=== PATIENT | male | born 1965 | race Caucasian/White ===

== ENCOUNTER 2023-07-05 17:05 | Emergency (ER) | payer MEDICAID, SELFPAY ==
[2023-07-05 17:08] VITALS: BP 149/78; PULSE 82; RESP 16; TEMP 36.5; O2SAT 93; BMI 34.7
--- NOTE | 2023-07-05 17:58 | CTR_ITS ---
PROCEDURE INFORMATION: Exam: CT Abdomen And Pelvis With Contrast Exam date and time: 07/05/2023 6:27 PM Age: 58 years old Clinical indication: Abdominal pain; Localized; Right lower quadrant (rlq); Additional info: Abd pain TECHNIQUE: Imaging protocol: Computed tomography of the abdomen and pelvis with contrast. Radiation optimization: All CT scans at this facility use at least one of these dose optimization techniques: automated exposure control; mA and/or kV adjustment per patient size (includes targeted exams where dose is matched to clinical indication); or iterative reconstruction. Contrast material: [id number]; Contrast volume: 100 ml; Contrast route: INTRAVENOUS (IV); COMPARISON: No relevant prior studies available. RADIATION DOSE METRICS: Total DLP (mGy-cm): 1120 FINDINGS: Lungs: There are atelectatic changes in both lung bases, more in the left lower lobe. Mediastinal space: There is mediastinal lipomatosis. Liver: Normal. No mass. Gallbladder and bile ducts: Normal. No calcified stones. No ductal dilation. Pancreas: Normal. No ductal dilation. Spleen: Normal. No splenomegaly. Adrenal glands: Normal. No mass. Kidneys and ureters: Normal. No hydronephrosis. Stomach and bowel: There is mild fat stranding surrounding the 2nd and 3rd segments of the duodenal with mild duodenal wall thickening. There is wall thickening of the ascending colon with surrounding fat stranding. There are scattered diverticuli in the colon. There fatty infiltration of the wall of the ascending and transverse colon. Appendix: No evidence of appendicitis. Intraperitoneal space: There is mild amount of free fluid tracking along the right paracolic gutter. Vasculature: There are vascular calcifications. Lymph nodes: Unremarkable. No enlarged lymph nodes. Urinary bladder: Unremarkable as visualized. Reproductive: There are prostate calcifications. Bones/joints: There is mild degenerative of bilateral hip joints. Soft tissues: Unremarkable. CT/CT abdomen pelvis w con* [id number] IMPRESSION: 1. Findings consistent with duodenitis of the 2nd and 3rd segments of the duodenal. 2. Findings consistent with ascending colitis/diverticulitis. 3. No perforation. No abscess formation.
[2023-07-05] MEDS: ondansetron 2 mg/ML SDV 2 mL 4 MG IVP (18:02)
[2023-07-05] MEDS: HYDROmorphone 1 mg/mL INJ 1 mL IVP (18:03)
[2023-07-05 18:05] VITALS: BP 117/72; PULSE 75; RESP 16; O2SAT 95
[2023-07-05 18:08] LABS: Basophils # 0.1 10^3/uL (0.0-0.1); Basophils % 0.7 %; Eosinophils # 0.2 10^3/uL (0.0-0.8); Eosinophils % 1.9 %; Hematocrit 48.6 % (37-53); Lymphocytes # 1.5 10^3/uL (0.8-4.8); Lymphocytes % 14.9 %; Mean Corpuscular HGB Conc 32.7 g/dL (30-55); Mean Corpuscular Hemoglobin 29.8 pg (27-33); Mean Platelet Volume 9.7 fL (7.4-10.4); Monocytes # 0.7 10^3/uL (0.2-0.9); Monocytes % 7.3 %; Neutrophils # 7.55 10^3/uL (1.8-7.7); Neutrophils % 74.7 %; Nucleated Red Blood Cells % 0 %; Platelet Count 263 10^3/cmm (157-399); Red Blood Count 5.34 10^6/uL (3.85-5.65); Red Cell Distribution Width 13.2 % (12.1-15.1); White Blood Count 10.11 10^3/uL (3.29-11.43)
--- NOTE | 2023-07-05 18:08 | ED_ITS ---
HPI - Abdominal Pain 2 General: Chief Complaint: Abdominal Pain Stated Complaint: abd pain Time Seen by Provider: 07/05/23 17:57 Source: patient Mode of arrival: ambulatory Limitations: no limitations History of Present Illness: 58-year-old male states that over the la st 6 days been having abdominal pain has gotten much worse over the last 2 days states pain is very sharp in nature rates an 8 out of 10 it has been in his right lower quadrant states has had some diarrhea he denies any vomiting denies any fever denies any worsening improving factors. Denies any radiation of his pain Associated Symptoms: Denies chills, diarrhea, dysuria, fever(s), nausea and vomiting Review of Systems 2 Const: Denies: fever(s), chills, body aches or change in appetite ENMT: Denies: throat pain or dental pain Card: Denies: chest pain Resp: Denies: dyspnea GI: Reports: abdominal pain; Denies: nausea, vomiting or diarrhea : Denies: dysuria Musc: Denies: neck pain or back pain Skin/Breast: Denies: rash Neuro: Denies: headache(s) Physical Exam 2 Const: COMMON NORMALS: no acute distress, patient oriented x3 and healthy appearing HENMT: COMMON NORMALS: normocephalic and atraumatic HEAD & SCALP: n ormocephalic and atraumatic Neck/C-Spine: COMMON NORMALS: full ROM and supple Chest: COMMONS NORMALS: normal inspection of the chest and normal palpation of entire chest wall Resp: COMMON NORMALS: normal respiratory effort Cardio: COMMON NORMALS: regular rate, regular rhythm and No murmurs present (Cardio) RATE: regular rate RHYTHM: regular rhythm GI: COMMON NORMALS: Normal to inspection, nondistended, normoactive bowel sounds present, Soft to palpation and no masses PALPATION: Yes Soft to palpation and Yes Tenderness to palpation present (GI) Details: RLQ Extremity: COMMON NORMALS: normal to inspection and full ROM Neuro: COMMON NORMALS: patient oriented x3, moves all extremities and no focal motor deficits Psych: COMMON NORMALS: mental status grossly normal, Normal thought process present and cooperative THOUGHT PROCESS: Normal thought process present Skin: COMMON NORMALS: no rashes or lesions noted and no wounds GENERAL SKIN EXAM: no rashes or lesions noted Course 2 Vital Signs: Vital signs: Vital Signs Temperature 97.7 F 07/05/23 17:08 Pulse Rate 75 07/05/23 18:05 Respiratory Rate 16 07/05/23 18:05 Blood Pressure 117/72 07/05/23 18:05 Pulse Oximetry 95 07/05/23 18:05 Oxygen Delivery Me thod Room Air 07/05/23 17:08 MDM - Abdominal Pain Medical Decision Making Patient presents here with colitis along with gastritis likely causing pain no signs appendicitis we will start him on Flagyl Cipro along with Protonix he is to follow-up with surgery return if worsening. Medical Records I reviewed the patient's medical records. Lab Data I reviewed the patient's lab results. 07/05/23 17:58 07/05/23 17:58 Labs/Radiology: Radiology Impressions Abdomen/Pelvis CT 07/05/23 17:58 IMPRESSION: 1. Findings consistent with duodenitis of the 2nd and 3rd segments of the duodenal. 2. Findings consistent with ascending colitis/diverticulitis. 3. No perforation. No abscess formation. Laboratory Results WBC 10.11 10^3/uL (3.29-11.43) 07/05/23 17:58 RBC 5.34 10^6/uL (3.85-5.65) 07/05/23 17:58 Hgb 15.90 g/dL (11.27-16.99) 07/05/23 17:58 Hct 48.6 % (37-53) 07/05/23 17:58 MCV 91.0 fl (82-101) 07/05/23 17:58 MCH 29.8 pg (27-33) 07/05/23 17:58 MCHC 32.7 g/dL (30-55) 07/05/23 17:58 RDW 13.2 % (12.1-15.1) 07/05/23 17:58 Plt Count 263 10^3/cmm (157-399) 07/05/23 17:58 MPV 9.7 fL (7.4-10.4) 07/05/23 17:58 Neut % (Auto) 74.7 % 07/05/23 17:58 Lymph % (Auto) 14.9 % 07/05/23 17:58 [place] % (Auto) 7.3 % 07/05/23 17:58 Eos % (Auto) 1.9 % 07/05/23 17:58 Baso % (Auto) 0.7 % 07/05/23 17:58 Neut # (Auto) 7.55 10^3/uL (1.8-7.7) 07/05/23 17:58 Lymph # (Auto) 1.5 10^3/uL (0.8-4.8) 07/05/23 17:58 [place] # (Auto) 0.7 10^3/uL (0.2-0.9) 07/05/23 17:58 Eos # (Auto) 0.2 10^3/uL (0.0-0.8) 07/05/23 17:58 Baso # (Auto) 0.1 10^3/uL (0.0-0.1) 07/05/23 17:58 Nucleated RBC % (auto) 0 % 07/05/23 17:58 Nucleated RBCs # 0.0 /100WBC 07/05/23 17:58 Sodium 133 mmol/L (136-145) L 07/05/23 17:58 Potassium 4.4 mmol/L (3.5-5.1) 07/05/23 17:58 Chloride 96 mmol/L (98-107) L 07/05/23 17:58 Carbon Dioxide 28 mmol/L (22-29) 07/05/23 17:58 Anion Gap 13.4 (5-19) 07/05/23 17:58 BUN 12 mg/dL (6-20) 07/05/23 17:58 Creatinine 1.3 mg/dL (0.7-1.2) H 07/05/23 17:58 GFR Calculation 57.1 mL/min (90-130) L 07/05/23 17:58 Glucose 106 mg/dL (65-115) 07/05/23 17:58 Calculated Osmolality 276 mOsm/kg (285-295) L 07/05/23 17:58 Calcium 8.6 mg/dL (8.5-10.5) 07/05/23 17:58 Total Bilirubin 0.5 mg/dL (0.15-1.2) 07/05/23 17:58 AST 12 U/L (0-40) 07/05/23 17:58 ALT 17 U/L (0-41) 07/05/23 17:58 Alkaline Phosphatase 121 U/L (40-130) 07/05/23 17:58 Total Protein 6.8 g/dL (6.6-8.7) 07/05/23 17:58 Albumin 3.6 g/dL (3.5-5.2) 07/05/23 17:58 Globulin 3.2 g/dL (1.3-4.6) 07/05/23 17:58 Lipase 22 U/L (13-60) 07/05/23 17:58 All radiology interpretation(s) finalized by discharge Discharge Plan Discharge Patient Disposition: Home Clinical Impression: Colitis, Duodenitis Condition: Stable Prescriptions: New hydrocodone-acetaminophen 5-325 mg tablet 1 tab PO Q6H PRN (Reason: pain) Qty: 14 0RF metronidazole 500 mg tablet 500 mg PO Q8H 7 Days Qty: 21 0RF Cipro 500 mg tablet 500 mg PO BID Qty: 14 0RF Protonix 40 mg tablet,delayed release (DR/EC) 40 mg PO BID Qty: 90 0RF ondansetron 4 mg tablet,disintegrating 4 mg PO Q6H PRN (Reason: nausea and vomiting) Qty: 14 0RF Discharge Orders: Discharge ED (Routine); Ordered 07/05/23 Ordered By: Hector Campa Referrals: Fritz Britt MD [Physician] - 1-3 days Lacie Ivey FNP [Primary Care Provider] - Discharge Diet: Advance as tolerated Discharge Activity: Resume usual activity Patient Instructions: Gastritis (ED), Colitis (ED), Opioid Safety Coding Level of Care Code ED Asphalt Distributor Tender for Mayela Lamar
[2023-07-05] MEDS: iohexol 350 mg/mL 500 mL Btl (per mL) IV (18:18)
[2023-07-05 18:45] LABS: Alanine Aminotransferase 17 U/L (0-41); Albumin Level 3.6 g/dL (3.5-5.2); Alkaline Phosphatase 121 U/L (40-130); Anion Gap 13.4 (5-19); Aspartate Amino Transferase 12 U/L (0-40); Blood Urea Nitrogen 12 mg/dL (6-20); Calcium 8.6 mg/dL (8.5-10.5); Carbon Dioxide 28 mmol/L (22-29); Chloride 96 mmol/L (98-107); Globulin 3.2 g/dL (1.3-4.6); Glomerular Filtration Rate 57.1 mL/min (90-130); Glucose 106 mg/dL (65-115); Lipase 22 U/L (13-60); Osmolality Calculated 276 mOsm/kg (285-295); Potassium 4.4 mmol/L (3.5-5.1); Sodium 133 mmol/L (136-145); Total Bilirubin 0.5 mg/dL (0.15-1.2); Total Protein 6.8 g/dL (6.6-8.7)
[2023-07-05 19:23] VITALS: BP 118/68
== END 2023-07-05 19:23 | disposition home or self-care (01) ==
PROVIDERS: Emergency Provider Emergency Medicine; PCP Nurse Practitioner Primary Care
DX: K52.9 Noninfective gastroenteritis and colitis, unspecified (principal); K29.80 Duodenitis without bleeding
CPT/HCPCS: 74177; 80053; 83690; 85025; 96374; 96375; 99285; J1170; J2405; Q9967

== ENCOUNTER 2023-07-29 14:22 | Emergency (ER) | payer MEDICAID, SELFPAY ==
--- NOTE | 2023-07-29 14:24 | XRR_ITS ---
PROCEDURE INFORMATION: Exam: XR Chest Exam date and time: 07/29/2023 3:45 PM Age: 58 years old Clinical indication: Pain; Chest pressure; Additional info: Cp TECHNIQUE: Imaging protocol: Radiologic exam of the chest. Views: 1 view. COMPARISON: CT abdomen pelvis w con* [id number] 07/05/2023 6:27 PM FINDINGS: Lungs: Curvilinear bibasilar atelectasis or scarring. No consolidation. Pleural spaces: Unremarkable. No pleural effusion. No pneumothorax. Heart/Mediastinum: Unremarkable. No cardiomegaly. Bones/joints: Unremarkable. XR/XR chest 1V portable [id number] IMPRESSION: No acute findings.
--- NOTE | 2023-07-29 14:27 | ECG_ITS ---
[facility] Test Date: 2023-07-29 Pat Name: Jordan Ellis Department: Room: Gender: Male Dope Edger: : 1965 Requested By: Hector Campa Order Number: [id number] Thomas MD: Dimitrios Perez M.D. Measurements Intervals [place] Rate: 68 P: 45 SC: 192 QRS: -6 QRSD: 106 T: 54 QT: 416 QTc: 444 Interpretive Statements SINUS RHYTHM No previous ECG available for comparison Electronically Signed On 07-30-2023 8:48:14 BOX STACKER by Dimitrios Perez M.D. [id number]
[2023-07-29 14:32] VITALS: BP 135/82; PULSE 69; RESP 16; TEMP 36.6; O2SAT 93; BMI 33.7
[2023-07-29 15:30] LABS: Basophils # 0.1 10^3/uL (0.0-0.1); Basophils % 1.3 %; Eosinophils # 0.2 10^3/uL (0.0-0.8); Eosinophils % 2.3 %; Lymphocytes # 1.7 10^3/uL (0.8-4.8); Lymphocytes % 18.5 %; Mean Corpuscular Hemoglobin 29.1 pg (27-33); Mean Corpuscular Volume 88.3 fl (82-101); Mean Platelet Volume 10.3 fL (7.4-10.4); Monocytes # 0.6 10^3/uL (0.2-0.9); Neutrophils % 71.2 %; Nucleated Red Blood Cells % 0 %; Platelet Count 345 10^3/cmm (157-399); Red Blood Count 5.32 10^6/uL (3.85-5.65); Red Cell Distribution Width 13.1 % (12.1-15.1); White Blood Count 9.13 10^3/uL (3.29-11.43)
[2023-07-29 15:45] LABS: INR 0.87 (0.8-1.2)
[2023-07-29 15:52] LABS: Alanine Aminotransferase 26 U/L (0-41); Albumin Level 4.3 g/dL (3.5-5.2); Alkaline Phosphatase 115 U/L (40-130); Anion Gap 17.6 (5-19); Aspartate Amino Transferase 20 U/L (0-40); Blood Urea Nitrogen 15 mg/dL (6-20); Calcium 9.3 mg/dL (8.5-10.5); Carbon Dioxide 25 mmol/L (22-29); Chloride 94 mmol/L (98-107); Creatinine Clr Calc Pharmacy 91.6762; Globulin 2.8 g/dL (1.3-4.6); Glomerular Filtration Rate 69.2 mL/min (90-130); Glucose 94 mg/dL (65-115); Lipase 27 U/L (13-60); Osmolality Calculated 275 mOsm/kg (285-295); Potassium 4.6 mmol/L (3.5-5.1); Sodium 132 mmol/L (136-145); Total Bilirubin 0.4 mg/dL (0.15-1.2); Total Protein 7.1 g/dL (6.6-8.7)
[2023-07-29 15:58] LABS: Troponin(5th) Baseline 16 ng/L (0-15)
--- NOTE | 2023-07-29 16:00 | ED_ITS ---
HPI - Chest Pain 2 General: Chief Complaint: Chest Pain Stated Complaint: chest pains,sob, arm pain Time Seen by Provider: 07/29/23 15:38 History of Present Illness: Patient presents to the ER with complaints of chest pain on his left side. This is worse when he takes a big deep breath or moves his arm. This been going on for 3 days but has been getting worse. Patient states it is to 10 out of 10 however he is sitting in no acute distress talking to me in a cool calm collected voice and his vital signs are normal. Patient denies any shortness of breath, nausea vomiting diaphoresis Review of Systems 2 General: Reports: 10 or more systems reviewed and unremarkable except in HPI and below Physical Exam 2 Const: COMMON NORMALS: no acute distress, average body habitus, patient oriented x3, no limitations, healthy appearing, alert and well nourished HENMT: COMMON NORMALS: normocephalic, atraumatic, hearing grossly normal bilaterally, external ears normal, Normal external nose present, moist oral mucous membranes and oropharynx normal HEAD & SCALP: normocephalic and atraumatic NOSE: Normal external nose present EXTERNAL EAR: Yes external ears normal Neck/C-Spine: COMMON NORMALS: no JVD Chest: COMMONS NORMALS: normal inspection of the chest; negative for normal palpation of entire chest wall (Palpation of left anterior chest wall reproduces the pain) Resp: COMMON NORMALS: normal respiratory effort, No retractions, No use of accessory muscles and clear to auscultation bilaterally AUSCULTATION: clear to auscultation bilaterally Cardio: COMMON NORMALS: no JVD, regular rate, regular rhythm, S1 normal heart sound present, S2 normal heart sound present, No gallops present (Cardio), No clicks present (Cardio), No murmurs present (Cardio) and No rub (Cardio) R ATE: regular rate RHYTHM: regular rhythm HEART SOUNDS: S1 normal heart sound present and S2 normal heart sound present GI: COMMON NORMALS: Normal to inspection, nondistended, normoactive bowel sounds present, Soft to palpation, non-tender, No hepatosplenomegaly present and no masses PALPATION: Yes Soft to palpation and Yes No hepatosplenomegaly present Neuro: COMMON NORMALS: patient oriented x3 SENSORIUM/ORIENTATION: Yes alert Course 2 Vital Signs: Vital signs: Vital Signs Temperature 97.8 F 07/29/23 14:32 Pulse Rate 69 07/29/23 14:32 Respiratory Rate 16 07/29/23 14:32 Blood Pressure 135/82 07/29/23 14:32 Pulse Oximetry 93 07/29/23 14:32 Oxygen Delivery Me thod Room Air 07/29/23 14:32 MDM - Chest Pain Medical Decision Making Patient presents with left chest pain that is worse when he takes a big deep breath or pushes on chest. Patient was worked up in a standard chest pain fashion with serial EKGs, labs and chest x-ray, all of which did not point to an acute cause of cardiac chest pain. Is felt this is more musculoskeletal and chest wall pain. Pending final troponin patient will be discharged home to follow-up with his PCP Differential Diagnosis Unlikely acute massive pulmonary embolism, acute respiratory failure, acute myocardial infarction, cardiac arrest or sudden cardiac Medical Records I reviewed the patient's medical records. Lab Data I reviewed the patient's lab results. 07/29/23 14:44 07/29/23 14:44 Radiology Impressions Chest X-Ray 07/29/23 14:24 IMPRESSION: No acute findings. Laboratory Results WBC 9.13 10^3/uL (3.29-11.43) 07/29/23 14:44 RBC 5.32 10^6/uL (3.85-5.65) 07/29/23 14:44 Hgb 15.50 g/dL (11.27-16.99) 07/29/23 14:44 Hct 47.0 % (37-53) 07/29/23 14:44 MCV 88.3 fl (82-101) 07/29/23 14:44 MCH 29.1 pg (27-33) 07/29/23 14:44 MCHC 33.0 g/dL (30-55) 07/29/23 14:44 RDW 13.1 % (12.1-15.1) 07/29/23 14:44 Plt Count 345 10^3/cmm (157-399) 07/29/23 14:44 MPV 10.3 fL (7.4-10.4) 07/29/23 14:44 Neut % (Auto) 71.2 % 07/29/23 14:44 Lymph % (Auto) 18.5 % 07/29/23 14:44 [place] % (Auto) 6.0 % 07/29/23 14:44 Eos % (Auto) 2.3 % 07/29/23 14:44 Baso % (Auto) 1.3 % 07/29/23 14:44 Neut # (Auto) 6.50 10^3/uL (1.8-7.7) 07/29/23 14:44 Lymph # (Auto) 1.7 10^3/uL (0.8-4.8) 07/29/23 14:44 [place] # (Auto) 0.6 10^3/uL (0.2-0.9) 07/29/23 14:44 Eos # (Auto) 0.2 10^3/uL (0.0-0.8) 07/29/23 14:44 Baso # (Auto) 0.1 10^3/uL (0.0-0.1) 07/29/23 14:44 Nucleated RBC % (auto) 0 % 07/29/23 14:44 Nucleated RBCs # 0.0 /100WBC 07/29/23 14:44 PT 12.10 SECONDS (12.1-14.9) 07/29/23 14:44 INR 0.87 (0.8-1.2) 07/29/23 14:44 Sodium 132 mmol/L (136-145) L 07/29/23 14:44 Potassium 4.6 mmol/L (3.5-5.1) 07/29/23 14:44 Chloride 94 mmol/L (98-107) L 07/29/23 14:44 Carbon Dioxide 25 mmol/L (22-29) 07/29/23 14:44 Anion Gap 17.6 (5-19) 07/29/23 14:44 BUN 15 mg/dL (6-20) 07/29/23 14:44 Creatinine 1.1 mg/dL (0.7-1.2) 07/29/23 14:44 GFR Calculation 69.2 mL/min (90-130) L 07/29/23 14:44 Glucose 94 mg/dL (65-115) 07/29/23 14:44 Calculated Osmolality 275 mOsm/kg (285-295) L 07/29/23 14:44 Calcium 9.3 mg/dL (8.5-10.5) 07/29/23 14:44 Total Bilirubin 0.4 mg/dL (0.15-1.2) 07/29/23 14:44 AST 20 U/L (0-40) 07/29/23 14:44 ALT 26 U/L (0-41) 07/29/23 14:44 Alkaline Phosphatase 115 U/L (40-130) 07/29/23 14:44 Troponin T Baseline 16 ng/L (0-15) H 07/29/23 14:44 Troponin T 120 Minute 10.89 ng/L (0-15) 07/29/23 17:25 Delta Troponin T -5.11 ABS# (0-10) L 07/29/23 17:25 Total Protein 7.1 g/dL (6.6-8.7) 07/29/23 14:44 Albumin 4.3 g/dL (3.5-5.2) 07/29/23 14:44 Globulin 2.8 g/dL (1.3-4.6) 07/29/23 14:44 Lipase 27 U/L (13-60) 07/29/23 14:44 All radiology interpretation(s) finalized by discharge EKG Data EKG 1: I personally reviewed and interpreted this EKG as follows: EKG interpretation date: 07/29/23 EKG interpretation time: 14:27 Prior EKG tracings: not available for review Interpretation: Ventricular rate 68 beats minute, MI interval 192, QRS 106, QTc of 444, normal sinus rhythm EKG 3: I personally reviewed and interpreted this EKG as follows: EKG interpretation date: 07/29/23 EKG interpretation time: 16:20 Prior EKG tracings: available for review Interpretation: Ventricular rate 62 bpm, MI interval 199, QRS duration 112, QTc of 437, sinus rhythm Discharge Plan Discharge Patient Disposition: Home Clinical Impression: Atypical chest pain Condition: Stable Prescriptions: No Action pantoprazole [Protonix] 40 mg tablet,delayed release (DR/EC) 40 mg PO BID Qty: 90 0RF ondansetron 4 mg tablet,disintegrating 4 mg PO Q6H PRN (Reason: nausea and vomiting) Qty: 14 0RF fluticasone propionate 220 mcg/actuation HFA aerosol inhaler 2 puff INHALATION BID citalopram 40 mg tablet 40 mg PO QAM lisinopril-hydrochlorothiazide 20-12.5 mg tablet 1 tab PO QAM hydroxyzine HCl 50 mg tablet 50 mg PO BID PRN (Reason: Anxiety) trazodone 150 mg tablet 150 mg PO BEDTIME Anoro Ellipta 62.5-25 mcg/actuation blister with device 1 inh INHALATION BEDTIME Asmanex HFA 200 mcg/actuation HFA aerosol inhaler 2 puff INHALATION BID Thc Gummies 5.5 mg PO BEDTIME Discharge Orders: Discharge ED (Routine); Ordered 07/29/23 Ordered By: Joe Mayfield Referrals: Lacie Ivey FNP [Primary Care Provider] - 1 week Patient Instructions: Chest Pain - Chest Wall Activity Restrictions/Additional Instructions: Your evaluation in the ER did not point to a cardiac cause of your chest pain. Is felt to be more musculoskeletal. Please follow-up with your family practice physician for further evaluation and treatment. Coding Level of Care Code ED Dockmaster for Mayela Lamar
--- NOTE | 2023-07-29 16:25 | ECG_ITS ---
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 Measurements Intervals [place] Rate: 62 P: 40 [place]: 199 QRS: -21 QRSD: 112 T: 50 QT: 432 QTc: 439 Interpretive Statements SINUS RHYTHM BORDERLINE LEFT AXIS DEVIATION [QRS AXIS < -20] MODERATE INTRAVENTRICULAR CONDUCTION DELAY [110+ ms QRS DURATION] Compared to ECG 07/29/2023 14:27:08 Intraventricular conduction delay now present Electronically Signed On 07-30-2023 9:35:04 CHARGE ATTENDANT by Dimitrios Perez M.D. [id number]
[2023-07-29] MEDS: acetaminophen 500 mg Tablet 1000 MG PO (16:32)
[2023-07-29 17:53] LABS: Troponin 5 2HR 10.89 ng/L (0-15)
[2023-07-29 17:57] LABS: Troponin 5 2HR Delta -5.11 ABS# (0-10)
== END 2023-07-29 18:10 | disposition home or self-care (01) ==
PROVIDERS: Emergency Medicine; Emergency Provider Emergency Medicine; PCP Nurse Practitioner Primary Care
DX: R07.89 Other chest pain (principal)
CPT/HCPCS: 36415; 71045; 80053; 83690; 84484; 85025; 85610; 93005; 99285